=== PATIENT | female | born 1955 | race African-American/Black ===

== ENCOUNTER 2019-10-18 14:42 | Outpatient (CLI) | payer MEDICARE, SELFPAY ==
[2019-10-18 16:36] LABS: Alanine Aminotransferase 19 U/L (4-35); Albumin Level 4.4 g/dL (3.5-5.1); Alkaline Phosphatase 101 U/L (38-126); Aspartate Amino Transferase 19 U/L (14-36); Bilirubin,Total 0.5 mg/dL (0.2-1.3); Blood Urea Nitrogen 12 mg/dL (7-17); Calcium 9.5 mg/dL (8.4-10.2); Carbon Dioxide 25 mmol/L (22-30); Chloride 101 mmol/L (98-107); Estimated Glomerular Filt Rate > 60; Glucose 120 mg/dL (65-105); Potassium 3.8 mmol/L (3.4-5.0); Sodium 142 mmol/L (137-145)
[2019-10-18 16:53] LABS: Free T4 Free Thyroxine 1.54 ng/mL (0.78-2.19)
[2019-10-18 16:56] LABS: Creatinine Urine 45.8 mg/dL
[2019-10-18 17:01] LABS: MALB Creatinine Ratio 22.1 mg/g (0-30); Microalbumin Urine Random 10.1 mg/L (0-16.7)
[2019-10-21 06:59] LABS: Triiodothyronine T3 Free 1.7 pg/mL (2.3-4.2)
== END 2019-10-18 14:43 | disposition home or self-care (01) ==
LOC: ANHWCLAB 14:48
PROVIDERS: PCP Internal Medicine Endocrinology, Diabetes & Metabolism; Visit Provider Internal Medicine Endocrinology, Diabetes & Metabolism
DX: E03.9 Hypothyroidism, unspecified (principal); E04.9 Nontoxic goiter, unspecified; E11.9 Type 2 diabetes mellitus without complications; R79.89 Other specified abnormal findings of blood chemistry; M81.0 Age-related osteoporosis without current pathological fracture; Z78.0 Asymptomatic menopausal state
CPT/HCPCS: 36415; 80053; 82043; 82607; 84439; 84443; 84481

== ENCOUNTER 2025-03-20 17:33 | Emergency (ER) | payer MEDICARE, SELFPAY ==
--- NOTE | ~2025-03-20 | XR_ITS ---
EXAM: XR foot LT min 3V DATE: 03/20/2025 18:23 HISTORY: pain, no trauma . COMPARISON: None available. FINDINGS: Decreased mineralization. No fracture or dislocation. No lytic or blastic lesion. Mild sca ttered degenerative changes. Moderate Achilles and plantar enthesopathy. Prominent osteophytes/enthes ophytes over the dorsal aspect of the navicular and cuneiforms. No erosion or periosteal change. Soft tissues within normal limits. IMPRESSION: No acute osseous finding in the left foot. Reviewed, dictated and finalized at location K.
[2025-03-20 17:40] VITALS: BP 163/100; PULSE 108; RESP 14; TEMP 36.7; O2SAT 100
--- NOTE | 2025-03-20 18:06 | ED_ITS ---
HPI - General Adult General Chief complaint: Extremity Injury, Lower Stated complaint: Left Foot Pain and Swelling Source: patient Mode of arrival: ambulatory Limitations: no limitations History of Present Illness HPI narrative: Pt is a 69 y/o female presenting with c/o nontraumatic L. foot pain. Pain began 3 days ago. No constitutional sx. No paresthesias to the LLE. No additional complaints Related Data Home Medications ?Medication ?Instructions ?Recorded ?Confirmed ?Last Taken ?Type aspirin 81 mg tablet,delayed 81 mg PO DAILY 08/11/20 04/24/24 Unknown History release (Adult Aspirin Regimen) multivitamin 1 tablet PO DAILY 07/22/21 04/24/24 Unknown History Allergies Allergy/AdvReac Type Severity Reaction Status Date / Time codeine Allergy Mild Unknown Verified 03/20/25 18:04 Penicillins Allergy Unknown Unknown Verified 03/20/25 18:04 quinapril Allergy Unknown unkown Verified 03/20/25 18:04 Review of Systems Review of Systems: CONSTITUTIONAL: Denies body aches, fever, chills, or sweats. EYES: Denies visual changes, redness, or discharge. ENT: Denies rhinorrhea, congestion, sore throat, or otalgia. CARDIOVASCULAR: Denies chest pain, palpitations, or edema. RESPIRATORY: Denies cough or dyspnea. GASTROINTESTINAL: Denies abdominal pain, nausea, vomiting, or diarrhea. GENITOURINARY: Denies dysuria or hematuria. SKIN: Denies rash, itching, or wounds. MUSCULOSKELETAL:Report atraumatic pain left foot Denies back pain NEUROLOGIC: Denies headache, numbness, tingling, or weakness. PSYCH: Denies depression or anxiety. COUNT INCLUDES THE [facility] Past Medical History Medical History Vitamin D deficiency Type 2 diabetes mellitus with hyperglycemia Neuropathy Hypothyroidism (acquired) Body mass index (BMI) greater than 40 (08/04/18) Post-menopausal Hypertension Metabolic syndrome Thyroid disease Obesity ADHD Breast tumor Surgical History Surgical History H/O: hysterectomy H/O lumpectomy Family History Family History Other Family history of Alzheimer's disease Social History Social History Smoking status: Never smoker Alcohol intake: never Substance use: never Living arrangements: alone Occupation/Education: retired Additional occupation/education comments: contract paralegal with [employer] Exam Narrative: GENERAL: Well-appearing, obese, well-nourished, and in no acute distress. HEAD: Normocephalic, atraumatic. EYES: EOMI. No redness or drainage. Conjunctivae normal. ENT: Mucous membranes pink and moist. NECK: Normal AROM. Supple. CHEST: No respiratory distress. HEART: Normal rate Normal peripheral pulses. MUSCULOSKELETAL: No bony tenderness. EXTREMITIES: Normal range of motion. No edema. TTP noted to the lateral aspect of the L. foot without open wounds, erythema, edema, or other acute findings. SKIN: Warm, dry, no rash. Capillary refill normal. Normal skin turgor. NEURO: No focal deficits. Alert and oriented x3. Gait steady. PSYCH: Normal affect. No signs of depression or anxiety. Course Course Level of Care: Express Care Visit Medical Decision Making Imaging Data Attestation: I personally reviewed and interpreted this imaging study as follows: My impression: NAD Discharge Plan Discharge Clinical Impression: Acute pain of left foot Patient Disposition: Home Condition: Stable Instructions: Arthralgia (ED) Patient Language: Filipino Prescriptions: New doxycycline hyclate 100 mg capsule 100 mg PO BID Qty: 10 0RF No Action aspirin [Adult Aspirin Regimen] 81 mg tablet,delayed release (DR/EC) 81 mg PO DAILY multivitamin Tablet 1 tablet PO DAILY cholecalciferol (vitamin D3) 25 mcg (1,000 unit) capsule 25 mcg PO TID 90 Days Qty: 270 3RF amlodipine 10 mg tablet 10 mg PO DAILY Qty: 90 1RF ezetimibe 10 mg tablet 10 mg PO DAILY Qty: 90 0RF Ozempic 1 mg/dose (4 mg/3 mL) pen injector 1 mg subcut WEEKLY Qty: 3 0RF Rx Instructions: 1 mg weekly for 4 weeks then 2 mg weekly Ozempic 2 mg/dose (8 mg/3 mL) pen injector 2 mg subcut WEEKLY Qty: 9 1RF Rx Instructions: 1 mg weekly for 4 week then 2 mg weekly (DME) blood-glucose meter [Accu-Chek Guide Glucose Meter] Misc See Rx Instructions .Route Qty: 1 0RF Rx Instructions: to check BS once daily (DME) Accu-Chek Sirena Plus test strp Strip See Rx Instructions .Route Qty: 100 1RF Rx Instructions: check sugar oncea day (DME) lancets [Accu-Chek Softclix Lancets] Misc See Rx Instructions .Route Qty: 100 3RF Rx Instructions: check blood sugar once daily metformin 500 mg tablet See Rx Instructions .ROUTE .COMPLEX Qty: 360 0RF Dose Instruction: Take 2 tablets by mouth twice daily Rx Instructions: Take 2 tablets by mouth twice daily losartan 50 mg tablet See Rx Instructions .ROUTE .COMPLEX Qty: 180 0RF Dose Instruction: Take 1 tablet by mouth twice daily Rx Instructions: Take 1 tablet by mouth twice daily levothyroxine [Synthroid] 137 mcg tablet See Rx Instructions .ROUTE .COMPLEX Qty: 96 0RF Dose Instruction: TAKE 1 TABLET BY MOUTH ONCE DAILY 6 DAYS A WEEK, AND THEN TAKE 1.5 TABLETS BY MOUTH ONE DAY A WEEK Rx Instructions: TAKE 1 TABLET BY MOUTH ONCE DAILY 6 DAYS A WEEK, AND THEN TAKE 1.5 TABLETS BY MOUTH ONE DAY A WEEK Follow-up/Referrals: PHYSICIAN NOT ON STAFF,NONSTAFF [Primary Care Provider] - Time of Disposition: 18:42
== END 2025-03-20 18:59 | disposition home or self-care (01) ==
PROVIDERS: Emergency Provider Registered Nurse
DX: M79.672 Pain in left foot (principal); E11.42 Type 2 diabetes mellitus with diabetic polyneuropathy; Z79.84 Long term (current) use of oral hypoglycemic drugs; Z79.85 Long-term (current) use of injectable non-insulin antidiabetic drugs; E03.9 Hypothyroidism, unspecified; I10 Essential (primary) hypertension; E55.9 Vitamin D deficiency, unspecified; E88.810 Metabolic syndrome; Z79.82 Long term (current) use of aspirin
CPT/HCPCS: 73630; 99213; G0463